=== PATIENT | female | born 1965 | race Caucasian/White ===

== ENCOUNTER 2020-07-05 08:39 | Outpatient (CLI) | payer OTHER, SELFPAY ==
--- NOTE | ~2020-07-05 | MR_ITS ---
EXAMINATION: MR brain/brain stem wo con DATE: 07/05/2020 09:19 INDICATION: Frequent headaches TECHNIQUE: Magnetic resonance imaging (MRI) of the brain and brainstem was performed without intraven ous contrast. Sequences included sagittal and axial T1-weighted SE, axial diffusion-weighted FS SE, a xial T2*-weighted GRE, axial T2-weighted FLAIR, and axial T2-weighted FSE. Apparent diffusion coeffic ient (ADC) maps were created. COMPARISON: None. FINDINGS: There are no areas of restricted diffusion to suggest acute infarction. No intracranial hemorrhage or abnormal intracranial mass lesion. There is a single subtle nonspecific T2 hyperintense cyst in the left livan which is within normal limits for age. There are no intraparenchymal signal abnormalities s een on the other pulse sequences. The ventricles are normal in size. There are no abnormal extra-axia l fluid collections. Flow voids are seen in the cerebral arteries on the T2-weighted sequences consis tent with their expected patency. Mild mucosal thickening the bilateral ethmoid sinuses and a couple small mucous retention cysts in the bilateral maxillary sinuses. Visualized orbits and soft tissues a re unremarkable. IMPRESSION: 1. Single small nonspecific focus of white matter T2 hyperintensity in the central livan which is with in normal limits for age and may be related to chronic small vessel ischemic disease. No acute intrac ranial process. Reviewed, dictated and finalized at location A. IMPRESSION: 1. Single small nonspecific focus of white matter T2 hyperintensity in the cent ral livan which is within normal limits for age and may be related to chronic sm all vessel ischemic disease. No acute intracranial process.
== END 2020-07-05 08:40 | disposition home or self-care (01) ==
LOC: CHSIMG 08:41
PROVIDERS: PCP Family Medicine; Visit Provider Family Medicine
DX: R51 Headache (principal)
CPT/HCPCS: 70551